=== PATIENT | female | born 2000 | race Asian ===

== ENCOUNTER 2023-06-20 16:51 | Emergency (ER) | payer BC, SELFPAY ==
--- NOTE | 2023-06-20 16:56 | ECG_ITS ---
Test Reason : CP Blood Pressure : / mmHG Vent. Rate : 085 BPM Atrial Rate : 085 BPM P-R Int : 128 ms QRS Dur : 068 ms QT Int : 342 ms P-R-T Axes : 063 055 051 degrees QTc Int : 406 ms Normal sinus rhythm with sinus arrhythmia RSR' or QR pattern in V1 suggests right ventricular conduction delay Otherwise normal ECG No previous ECGs available Referred By: Chriss Haro Electronically Signed By:ELKE SEAY MD
[2023-06-20 17:10] VITALS: BP 113/81; PULSE 81; RESP 18; TEMP 37.2; O2SAT 100; BMI 24.5
--- NOTE | 2023-06-20 17:14 | ED.CHESTPAIN ---
HPI - Chest Pain General Chief Complaint: Chest Pain Stated Complaint: Chest pain History of Present Illness HPI narrative: Left without complete treatment from provider in the ED. Related Data Allergies Allergy/AdvReac Type Severity Reaction Status Date / Time No Known Allergies Allergy Verified 06/20/23 16:56 PMFSH Social History Social History Advance Directives: No Advance Directives Information Provided: No Physical Exam Vital Signs: Vital Signs: Last Vital Signs Temp 98.9 F 06/20/23 17:10 Pulse 81 06/20/23 17:10 Resp 18 06/20/23 17:10 BP 113/81 06/20/23 17:10 Pulse Ox 100 06/20/23 17:10 O2 Del Method Room Air 06/20/23 17:10 BMI result Body Mass Index 24.5 Course Course Course Narrative: RME: 23 yold female presents to the ED for chest pain describes as pleurisy since yesterday. patient states no leg swelling, calf pain, control use, recent long travel, or chest pain. labs, EKG, and chest xray ordered Discharge Plan Discharge Clinical Impression: Chest pain Patient Disposition: Left W/O Completing Treatment Print Language: Indonesian
--- NOTE | 2023-06-20 17:21 | MHC.EDTECH ---
PT INFORMED T/W SHE IS FEELING BETTER AND IS GOING TO LEAVE ED BEFORE SEEN. BLOCK TRADER AWARE. PT DECLINED BLOOD WORK.
== END 2023-06-20 17:56 | disposition left against medical advice (07) ==
PROVIDERS: Emergency Provider Emergency Medicine
DX: R07.89 Other chest pain (principal); I49.8 Other specified cardiac arrhythmias
CPT/HCPCS: 93005; 99283

== ENCOUNTER 2024-05-30 13:18 | Outpatient (AMB) | payer BC, SELFPAY ==
[2024-05-30 13:30] VITALS: BP 110/70; PULSE 78; TEMP 37; O2SAT 98; BMI 24.9
--- NOTE | 2024-05-30 13:30 | MHC.OFFWIV ---
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 ? Strep. 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 Patient reports symptoms of sore throat. She was diagnosed with strep throat a month ago. She has gone through 2 rounds of antibiotics. Apart from symptoms of sore throat, she reports no symptoms of postnasal drip or sinus congestion. Denies any symptoms of headaches. No nausea or vomiting. PFSH Social History Patient Tobacco Use Status: Never used Tobacco Physical Exam Vital Signs: Last Vital Signs Temp 98.6 F 05/30/24 13:30 Pulse 78 05/30/24 13:30 BP 110/70 05/30/24 13:30 Pulse Ox 98 05/30/24 13:30 Oxygen Delivery Method Room Air 05/30/24 13:30 BMI result Body Mass Index 24.9 Const General: cooperative and healthy appearing Nutritional Appearance: well nourished Orientation/consciousness: patient oriented x3 Limitations: no limitations HEENT Head: Yes normal to inspection Eyes General: appearance normal, both eyes and all related structures Neck Neck: Yes normal visual inspection Chest Chest palpation & inspection: normal palpation of entire chest wall Resp Effort & Inspection: normal respiratory effort Neuro General: patient oriented x3 Results AMB Rapid Strep AMB Rapid Strep Negative Last Edit by EVERARDO Vargas on 05/30/24 14:00 Results Reviewed Results Reviewed: Laboratory Last Values Strep Scn [facility] Negative 05/30/24 13:59 Assessment & Plan Assessment & Plan (1) Upper respiratory tract infection: Code(s): J06.9 - Acute upper respiratory infection, unspecified Plan: Symptoms are of viral etiology. Strep test was negative. No antibiotics needed. Increase fluid intake. Orders: Orders AMB Rapid Strep Screen Today Z13.9 - Encounter for screening, unspecified Coding Level of Care Code New Pt Level 3 (35015) Diagnoses Upper respiratory tract infection J06.9
== END 2024-05-30 15:44 | disposition home or self-care (01) ==
PROVIDERS: Visit Provider Internal Medicine
DX: Z13.9 Encounter for screening, unspecified (principal); J06.9 Acute upper respiratory infection, unspecified

== ENCOUNTER → 2024-05-30 13:18 | Outpatient (BNVA) | payer BC, SELFPAY | DX: J06.9 Acute upper respiratory infection, unspecified (principal) | CPT/HCPCS: 87880 ==